=== PATIENT | male | born 1940 | race Caucasian/White ===

== ENCOUNTER 2016-11-04 22:55 | Emergency (ER) | payer OTHER, MEDICARE ==
[~2016-11-04] VITALS: Ht 182.9 cm; Wt 95.3 kg
--- NOTE | 2016-11-04 22:59 | ED DYSPNEA/ASTHMA COMPLAINT ---
History of Present Illness General Chief Complaint: Dyspnea (COPD, CHF, Other) Stated Complaint: BIBA FOR SOB Source: patient, family, EMS Exam Limitations: no limitations Vital Signs & Intake/Output Vital Signs & Intake/Output Vital Signs Date Time Temp Pulse Resp B/P B/P Pulse O2 O2 Flow FiO2 Mean Ox Delivery Rate 11/05 0053 94 11/05 0048 97.4 66 18 124/70 94 Room Air 11/04 2314 96 Room Air 11/04 2257 97.4 86 20 157/88 96 Room Air ED Intake and Output 11/05 0000 11/04 1200 Intake Total Output Total Balance Patient 210 lb Weight Weight Reported by Patient Measurement Method Allergies Uncoded Allergies: NKDA (NONE 11/04/16) Reconcile Medications Albuterol Sulfate (Ventolin Hfa) 90 MCG HFA.AER.AD 2 PUF INH Q4-6 PRN PRN WHEEZE Prednisolone 15 MG/5 ML SOLUTION 10 ML PO QDAY WHEEZE Triage Nurses Notes Reviewed? yes Onset: Abrupt Duration: minute(s): Timing: single episode today Severity: moderate Activities at Onset: none Prior Episodes/Possible Cause: no prior episodes Modifying Factors: Improves With: other (better w/neb in field). Associated Symptoms: cough, wheezing HPI: 76 yo gentleman, in prior good health, presents with coughing and wheezing, sudden onset, 1 hour prior to arrival. Per his , "He was very short of breath.... it was very sudden... we called 911." Per medics, "very tight... o2 sat 92% on room air... we gave him a neb and he started feeling better right away... He looks good now." Past History Travel History Traveled to [place] past 21 day No Medical History Any Pertinent Medical History? see below for history Cardiovascular: hypertension, hyperlipidemia Surgical History Surgical History: none Family History Hx Contributory? No Review of Systems Review of Systems Constitutional: Reports: no symptoms. EENTM: Reports: no symptoms. Respiratory: Reports: no symptoms. Cardiovascular: Reports: no symptoms. GI: Reports: no symptoms. Genitourinary: Reports: no symptoms. Musculoskeletal: Reports: no symptoms. Skin: Reports: no symptoms. Neurological/Psychological: Reports: no symptoms. Hematologic/Endocrine: Reports: no symptoms. Immunologic/Allergic: Reports: no symptoms. All Other Systems: Reviewed and Negative Physical Exam Physical Exam General Appearance: well developed/nourished, no apparent distress Head: atraumatic, normal appearance Eyes: Bilateral: normal appearance. Ears, Nose, Throat: normal pharynx, normal ENT inspection Neck: normal inspection, supple, full range of motion Respiratory: chest non-tender, no respiratory distress, minimal left lower lung wheezing. Cardiovascular: regular rate/rhythm Gastrointestinal: normal bowel sounds, soft, non-tender, no organomegaly Extremities: normal inspection Neurologic/Psych: no motor/sensory deficits, awake, alert, oriented x 3 Skin: intact, normal color, warm/dry Core Measures ACS in differential dx? No Severe Sepsis Present: No Septic Shock Present: No Progress Differential Diagnosis: asthma, allergic reaction, copd... i doubt myocardial dz or chf. Plan of Care: Orders Procedure Date/time Status TROPONIN LEVEL 11/04 2301 Complete LIPASE 11/04 2301 Complete HEPATIC FUNCTION PANEL 11/04 2301 Complete D-DIMER 11/04 2301 Complete CBC WITHOUT DIFFERENTIAL 11/04 2301 Complete B-TYPE NATRIURETIC PEP (BNP) 11/04 2301 Complete BASIC METABOLIC PANEL 11/04 230 Complete AMYLASE 11/04 230 Complete EKG 11/04 2255 Active Laboratory Tests 11/04/16 2330: Anion Gap 9, Estimated GFR > 60, BUN/Creatinine Ratio 21.0, Glucose 130 H, Calcium 8.8, Total Bilirubin 0.5, Direct Bilirubin 0.2, AST 31, ALT 31, Alkaline Phosphatase 64, Troponin I 0.02, Ghv-V-Ljprmlkjgau Pept 477 H, Total Protein 6.0 L, Albumin 3.3 L, Amylase 57, Lipase 50, D-Dimer High Sensitivty 352 H, CBC w Diff NO MAN DIFF REQ, RBC 4.67 L, MCV 88.8, MCH 29.0, RDW 14.0, MPV 8.5, Gran % 78.4 H, Lymphocytes % 14.1 L, Monocytes % 5.5, Eosinophils % 1.5, Basophils % 0.5, Absolute Granulocytes 6.4, Absolute Lymphocytes 1.1 L, Absolute Monocytes 0.4, Absolute Eosinophils 0.1, Absolute Basophils 0, PUBS MCHC 32.7 L Diagnostic Imaging: Viewed by Me: Radiology Read. Discussed w/RAD: Radiology Read. CXR Impression: no acute abnormality, no infiltrates, normal size heart, normal mediastinum Initial ED EKG: normal axis, normal intervals, normal p-waves, normal QRS complex, normal sinus rhythm Comments: PATIENT: LUISITO SANDS PRESENT AGE: 76 PATIENT ACCOUNT NO: [id number] : 42 LOCATION: [facility] ORDERING PHYSICIAN: PAPITO CHAVEZ MD SERVICE DATE: 11/04/16 EXAM TYPE: RAD - XRY-PORTABLE CHEST XRAY EXAMINATION: XR PORTABLE CHEST CLINICAL INFORMATION: Dyspnea COMPARISON: None TECHNIQUE: Portable frontal view of the chest was obtained. FINDINGS: The lungs are well expanded. There is no focal consolidation, edema, or effusion. No pneumothorax. The cardiomediastinal silhouette is normal in size with a tortuous aorta. No acute osseous abnormality. IMPRESSION: No acute pulmonary findings. DICTATED BY: JIHAN MCGUIRE MD DATE/TIME DICTATED:11/05/161 COURTROOM REPORTER:YUDY DATE/TIME TRANSCRIBED:11/05/161 CONFIDENTIAL, DO NOT COPY WITHOUT APPROPRIATE AUTHORIZATION. <Electronically signed in Other Vendor System> SIGNED BY: JIHAN MCGUIRE MD 11/05 0006 Departure Departure Disposition: HOME OR SELF CARE Condition: Stable Clinical Impression Primary Impression: Bronchospasm Referrals: UNKNOWN Departure Forms: Customer Survey General Discharge Information Prescriptions: Current Visit Scripts Albuterol Sulfate (Ventolin Hfa) 2 PUF INH Q4-6 PRN PRN WHEEZE #1 INHAL Prednisolone 10 ML PO QDAY #30 ML Comments 11/05/16, 0:45... pt feeling better, negative trop/d-dimer (by 5xage cut off), negative cxr. he is stable on room air. discussed at length with patient. He would like to go home. 11/05/16, 1:33am... pt feeling better. 02 sat 96% on room air. He would like to go home... pt monitored in ED x 2 hr 45 minutes... He has been stable throughout. Gave rx for prednisolone and albuterol... close follow up advised. Return to ED if sx return. Critical Care Note Critical Care Note Critical Care Time: non-applicable
[2016-11-04 23:43] LABS: ABSOLUTE BASOPHIL COUNT 0 /CUMM (0.0-0.2); ABSOLUTE EOSINOPHIL COUNT 0.1 /CUMM (0.0-0.7); ABSOLUTE GRANULOCYTE CT 6.4 /CUMM (1.4-6.5); ABSOLUTE LYMPH COUNT 1.1 /CUMM (1.2-3.4); ABSOLUTE MONOCYTE COUNT 0.4 /CUMM (0.10-0.60); BASOPHIL % 0.5 % (0.0-2.0); EOSINOPHIL % 1.5 % (0-5); GRANULOCYTE % 78.4 % (42.2-75.2); HEMATOCRIT 41.5 % (42-52); MEAN CORPUSCULAR HGB CONC 32.7 G/DL (33.0-37.0); MEAN CORPUSCULAR VOLUME 88.8 FL (80.0-94.0); MEAN PLATELET VOLUME 8.5 FL (7.4-10.4); PLATELET COUNT 161 /CUMM (130-400); RED BLOOD CELL CT 4.67 /CUMM (4.70-6.10); WHITE BLOOD CELL COUNT 8.1 /CUMM (4.8-10.8)
--- NOTE | 2016-11-05 00:06 | RADIOLOGY REPORT ---
EXAMINATION: XR PORTABLE CHEST CLINICAL INFORMATION: Dyspnea COMPARISON: None TECHNIQUE: Portable frontal view of the chest was obtained. FINDINGS: The lungs are well expanded. There is no focal consolidation, edema, or effusion. No pneumothorax. The cardiomediastinal silhouette is normal in size with a tortuous aorta. No acute osseous abnormality. IMPRESSION: No acute pulmonary findings.
[2016-11-05 00:48] VITALS: BP 124/70
[2016-11-05] MEDS ORDERED: PREDNISOLO15 MG/5 M4 PO (01:29)
[2016-11-05] MEDS ORDERED: VENTOLIN HFA18 GM INH (01:29)
== END 2016-11-05 01:36 ==
LOC: ERH 22:55
PROVIDERS: Pediatrics
DX: J98.01 Acute bronchospasm (principal)
CPT/HCPCS: 1263; 1395; 93005; 93010; 96374; J2930